=== PATIENT | female | born 1970 ===

== ENCOUNTER 2019-08-28 13:33 | Emergency (ER) | payer OTHER ==
[~2019-08-28] VITALS: Ht 170.2 cm; Wt 71.2 kg
[2019-08-28] MEDS ORDERED: PROTONIX40 M1 (14:21)
[2019-08-28] MEDS ORDERED: COZAAR25 MG (14:21)
[2019-08-28] MEDS ORDERED: MEDROXYPROGESTE10 MG (14:22)
== END 2019-08-28 21:03 | disposition home or self-care (01) ==
LOC: ER 13:33
DX: D25.1 Intramural leiomyoma of uterus (principal); N93.8 Other specified abnormal uterine and vaginal bleeding